=== PATIENT | male | born 1995 | race Two or more races ===

== ENCOUNTER 2025-04-16 23:23 | Emergency (ER) | payer OTHER ==
[~2025-04-16] VITALS: Ht 165.1 cm; Wt 68.2 kg
[2025-04-16 23:47] VITALS: TEMP 98.4
[2025-04-17 02:30] VITALS: BP 117/67; PULSE 78; RESP 16; O2SAT 98
== END 2025-04-17 04:16 | disposition home or self-care (01) ==
LOC: EMS 23:35
DX: S00.83XA Contusion of other part of head, initial encounter (principal); S60.212A Contusion of left wrist, initial encounter; Y04.8XXA Assault by other bodily force, initial encounter; Y93.89 Activity, other specified; Y92.89 Other specified places as the place of occurrence of the external cause; Y99.8 Other external cause status
CPT/HCPCS: 70486; 99284; 73110-TC; Z7502